=== PATIENT | female | born 1940 | race Caucasian/White ===

== ENCOUNTER → 2016-07-06 | Outpatient (CLI) | payer MEDICARE | END | disposition home or self-care (01) | LOC: CFH 15:36 | PROVIDERS: ATTEND Physician Assistant Surgical | DX: M48.02 Spinal stenosis, cervical region (principal); M50.23 Other cervical disc displacement, cervicothoracic region; M50.221 Other cervical disc displacement at C4-C5 level; M50.222 Other cervical disc displacement at C5-C6 level; M43.12 Spondylolisthesis, cervical region | CPT/HCPCS: 72141 ==

== ENCOUNTER → 2016-07-17 | Outpatient (CLI) | payer MEDICARE | END | disposition home or self-care (01) | LOC: CFH 10:58 | PROVIDERS: ATTEND Physician Assistant Surgical | DX: M47.892 Other spondylosis, cervical region (principal); M48.02 Spinal stenosis, cervical region | CPT/HCPCS: 72050 ==

== ENCOUNTER → 2017-03-06 | Outpatient (CLI) | payer MEDICARE | LOC: CFH 07:29 | PROVIDERS: ATTEND Physician Assistant | DX: R10.11 Right upper quadrant pain (principal); R11.0 Nausea; R14.0 Abdominal distension (gaseous) | CPT/HCPCS: 76700 ==

== ENCOUNTER → 2017-05-22 | Outpatient (CLI) | payer MEDICARE | END | disposition home or self-care (01) | LOC: CFH 14:45 | PROVIDERS: ATTEND Otolaryngology | DX: E04.1 Nontoxic single thyroid nodule (principal) | CPT/HCPCS: 76536 ==

== ENCOUNTER 2018-03-11 10:51 | Outpatient (CLI) | payer MEDICARE | END 2018-03-11 23:59 | disposition home or self-care (01) | LOC: CFH 10:51 | PROVIDERS: ATTEND Physician Assistant Surgical | DX: M41.86 Other forms of scoliosis, lumbar region (principal); M51.36 Other intervertebral disc degeneration, lumbar region | CPT/HCPCS: 72110; 72170 ==

== ENCOUNTER 2018-03-26 09:37 | Outpatient (CLI) | payer MEDICARE | END 2018-03-26 23:59 | disposition home or self-care (01) | LOC: CFH 09:37 | PROVIDERS: ATTEND Physician Assistant Surgical | DX: M48.061 Spinal stenosis, lumbar region without neurogenic claudication (principal); M54.16 Radiculopathy, lumbar region; M41.86 Other forms of scoliosis, lumbar region; D18.09 Hemangioma of other sites | CPT/HCPCS: 72148 ==

== ENCOUNTER → 2018-04-04 | Outpatient (CLI) | payer MEDICARE ==
[~2018-04-04] MED LIST: GADOBUTROL 7.5 MMOL/7.5 ML PFS ONE
== END | disposition home or self-care (01) ==
LOC: CFH 09:02
PROVIDERS: ATTEND Family Medicine
DX: G31.9 Degenerative disease of nervous system, unspecified (principal); G43.119 Migraine with aura, intractable, without status migrainosus
CPT/HCPCS: 70553; A9585

== ENCOUNTER → 2018-05-01 | Outpatient (CLI) | payer MEDICARE | END | disposition home or self-care (01) | LOC: CFH 15:27 | PROVIDERS: ATTEND Otolaryngology | DX: E04.1 Nontoxic single thyroid nodule (principal) | CPT/HCPCS: 76536 ==

== ENCOUNTER 2018-10-01 09:09 | Outpatient (CLI) | payer MEDICARE | END 2018-10-01 23:59 | disposition home or self-care (01) | LOC: CFH 09:09 | PROVIDERS: ATTEND Obstetrics & Gynecology Gynecology | DX: Z12.31 Encounter for screening mammogram for malignant neoplasm of breast (principal) | CPT/HCPCS: 77063; 77067 ==

== ENCOUNTER → 2019-09-19 | Outpatient (CLI) | payer MEDICARE | END | disposition home or self-care (01) | LOC: CFH 12:31 | PROVIDERS: ATTEND Otolaryngology | DX: E04.1 Nontoxic single thyroid nodule (principal) | CPT/HCPCS: 76536 ==

== ENCOUNTER → 2019-11-04 | Outpatient (CLI) | payer MEDICARE | END | disposition home or self-care (01) | LOC: CFH 10:30 | PROVIDERS: ATTEND Obstetrics & Gynecology Gynecology | DX: Z12.31 Encounter for screening mammogram for malignant neoplasm of breast (principal) | CPT/HCPCS: 77063; 77067 ==

== ENCOUNTER → 2020-09-24 | Outpatient (CLI) | payer MEDICARE | END | disposition home or self-care (01) | LOC: RAD 09:36 | PROVIDERS: ATTEND Otolaryngology | DX: E04.1 Nontoxic single thyroid nodule (principal) | CPT/HCPCS: 76536 ==